=== PATIENT | female | born 1985 | race Caucasian/White ===

== ENCOUNTER 2018-08-17 12:30 | Emergency (ER) | payer OTHER ==
[2018-08-17 12:38] VITALS: BP 119/91; PULSE 59; TEMP 97.7; BMI 24.3
--- NOTE | 2018-08-17 13:22 | PDOC ---
History of Present Illness - General Chief Complaint: Urinary Problem Stated Complaint: R/O UTI Time Seen by Provider: 08/17/18 12:57 History Source: Patient Exam Limitations: Clinical Condition - History of Present Illness Initial Comments: 08/17/18 13:18 Patient with history of depression, anxiety present with complaint of three-day history of nasal congestion, runny nose and throat irritation. Patient also urinary frequency and dysuria. Patient reported vaginal delivery 2 months ago and wants letter to go back to work. Patient report uncomplicated vaginal delivery. Patient denies fever, chills, nausea or vomiting. Patient denies abdominal pain. Timing/Duration: other (3 days) Past History - Past Medical History Allergies/Adverse Reactions: Allergies Allergy/AdvReac Type Severity Reaction Status Date / Time No Known Allergies Allergy Verified 08/17/18 12:38 Home Medications: Ambulatory Orders Mirtazapine [Remeron -] 15 mg PO DAILY #30 tablet 08/18/17 Risperidone 1 mg PO HS #30 tablet 08/18/17 Zolpidem Tartrate [Ambien] 10 mg PO HS #30 tablet MDD 1 08/18/17 Albuterol Sulfate Inhaler - [Ventolin HFA Inhaler -] 1 - 2 inh PO Q4H PRN #1 inhaler MDD 8 07/25/18 Atovaquone [Mepron -] 2 tsp PO DAILY #210 ml 07/25/18 Dolutegravir Sodium [Tivicay] 1 tab PO DAILY #30 tablet 07/25/18 Emtricitabine/Tenofov Alafenam [Descovy 200-25 mg Tablet (Nf)] 1 tab PO DAILY # 30 tablet 07/25/18 Fluticasone Prop 0.05% Nasal [Flonase -] 1 - 2 spray NS DAILY #1 spray.pump Hydrocortisone 1% Cream [Hytone 1% Cream -] 1 applic TP BID #1 tube 07/25/18 Ibuprofen 400 mg PO BID #20 tablet MDD 2 07/25/18 Loratadine [Claritin -] 10 mg PO DAILY PRN #30 tablet 07/25/18 Multivitamin,Ther and Minerals [Vitamin and Minerals] 1 each PO DAILY #30 tablet 07/25/18 Nebulizer and Compressor [Comp-Air Nebulizer System] 1 each ASDIR #1 each Silver Sulfadiazine 1% Top Cr [Silvadene] 1 applic TP BID #1 jar 07/25/18 Cephalexin Monohydrate [Keflex -] 500 mg PO BID 7 Days #14 capsule 08/17/18 Ipratropium [place] 2 spray NS BID PRN #1 spray 08/17/18 Loratadine 10 mg PO DAILY #10 capsule 08/17/18 Phenazopyridine HCl [Pyridium -] 100 mg PO TID 2 Days #6 tablet 08/17/18 Anemia: Yes Asthma: Yes Cancer: No Cardiac Disorders: Yes CVA: No COPD: No CHF: No Dementia: No Diabetes: No GI Disorders: No Disorders: No HTN: No Hypercholesterolemia: No Liver Disease: No Psychiatric Problems: Yes (depression) Seizures: No Thyroid Disease: No - Reproductive History (#): 1 Para: 0 Therapeutic (s) & number: Yes Spontaneous : 4 - Suicide/Smoking/Psychosocial Hx Smoking Status: No Smoking History: Never smoked Have you smoked in the past 12 months: No Number of Cigarettes Smoked Daily: 0 Cigars Per Day: 0 Information on smoking cessation initiated: No Hx Alcohol Use: No Drug/Substance Use Hx: No Substance Use Type: None Hx Substance Use Treatment: No (Says she never used drugs / alcohol or smoked cigarretes) Review of Systems - Review of Systems Able to Perform ROS?: Yes Is the patient limited Occitan proficient: No Constitutional: No: Chills, Fever, Malaise HEENTM: Yes: Symptoms Reported, See HPI, Nose Congestion. No: Eye Pain, Blurred Vision, Tearing, Recent change in vision, Double Vision, Cataracts, Ear Pain, Ocular Prothesis, Ear Discharge, Nose Pain, Tinnitus, Nose Bleeding, Hearing Loss, Throat Pain, Throat Swelling, Mouth Pain, Dental Problems, Difficulty Swallowing, Mouth Swelling, Other Respiratory: Yes: Symptoms reported, See HPI, Cough (intermittent). No: Orthopnea, Shortness of Breath, SOB with Exertion, SOB at Rest, Stridor, Wheezing, Productive cough, Hemoptysis, Other Cardiac (ROS): No: Symptoms Reported, See HPI, Chest Pain, Edema, Irregular Heart Rate, Lightheadedness, Palpitations, Syncope, Chest Tightness, Other ABD/GI: No: Nausea, Vomiting : Yes: Symptoms Reported, See HPI, Burning, Dysuria, Frequency. No: Discharge , Flank Pain, Hematuria, Incontinence, Urgency Musculoskeletal: No: Back Pain All Other Systems: Reviewed and Negative *Physical Exam - Vital Signs Last Vital Signs Temp Pulse Resp BP Pulse Ox 97.7 F 59 L 18 119/91 97 08/17/18 12:35 08/17/18 12:35 08/17/18 12:35 08/17/18 12:35 08/17/18 12:35 - Physical Exam Comments: 08/17/18 13:22 GENERAL: Well developed, well nourished. Awake and alert. No acute distress. HEENT: Normocephalic, atraumatic. PERRLA, EOMI. No conjunctival pallor. Sclera are non-icteric. Moist mucous membranes. Oropharynx is clear. NECK: Supple. Full ROM. CARDIOVASCULAR: Regular rate and rhythm. No murmurs, rubs, or gallops. Distal pulses are 2+ and symmetric. PULMONARY: No evidence of respiratory distress. Lungs clear to auscultation bilaterally. No wheezing, rales or rhonchi. ABDOMINAL: Soft. Non-tender. Non-distended. No rebound or guarding. No organomegaly. Normoactive bowel sounds. MUSCULOSKELETAL Normal range of motion at all joints. : SKIN: Warm and dry. Normal capillary refill. No rashes. No jaundice. NEUROLOGICAL: Alert, awake, appropriate. Gait is normal without ataxia. PSYCHIATRIC: Cooperative. Good eye contact. Appropriate mood General Appearance: Yes: Nourished, Appropriately Dressed. No: Apparent Distress Moderate Sedation - Procedure Monitoring Vital Signs: Procedure Monitoring Vital Signs Temperature 97.7 F 08/17/18 12:35 Pulse Rate 59 L 08/17/18 12:35 Respiratory Rate 18 08/17/18 12:35 Blood Pressure 119/91 08/17/18 12:35 O2 Sat by Pulse Oximetry (%) 97 08/17/18 12:35 Medical Decision Making - Medical Decision Making 08/17/18 13:44 Patient with history of depression and anxiety present with complaint of three- day history of URI symptoms and 2 day history of dysuria, urinary frequency and suprapubic discomfort. Patient denies fever or chills. Exam significant for bilateral nasal congestion with lungs clear to auscultation bilateral. Normal pelvic exam with no cervical motion tenderness on pelvic exam and non- gravid abdomen or vaginal exam. UA and urine culture ordered. Urine hCG negative. Treat based on UA results. 08/17/18 14:12 UA shows moderate leukocytes with trace hematuria. Patient stable for discharge on Keflex for possible UTI and nasal spray with antihistamine for sinusitis with PCP follow-up. *DC/Admit/Observation/Transfer Diagnosis at time of Disposition: UTI (urinary tract infection) Qualifiers: Urinary tract infection type: acute cystitis Hematuria presence: without hematuria Qualified Code(s): N30.00 - Acute cystitis without hematuria Sinusitis Qualifiers: Sinusitis location: frontal Chronicity: acute Recurrence: non-recurrent Qualified Code(s): J01.10 - Acute frontal sinusitis, unspecified URI (upper respiratory infection) Qualifiers: URI type: unspecified URI Qualified Code(s): J06.9 - Acute upper respiratory infection, unspecified - Discharge Dispostion Disposition: HOME Condition at time of disposition: Stable Decision to Admit order: No - Prescriptions Prescriptions: Cephalexin Monohydrate [Keflex -] 500 mg PO BID 7 Days #14 capsule Ipratropium Courtenay 2 spray NS BID PRN #1 spray PRN Reason: nasal congestion Loratadine 10 mg PO DAILY #10 capsule Phenazopyridine HCl [Pyridium -] 100 mg PO TID 2 Days #6 tablet - Referrals Referrals: Magaly Vasquez [employer] [Primary Care Provider] - - Patient Instructions Printed Discharge Instructions: Urinary Tract Infection - Post Discharge Activity Forms/Work/School Notes: Back to Work
[2018-08-17 13:28] LABS: HCG,QUALITATIVE URINE Negative; URINE APPEARANCE SLCLOUDY; URINE BILIRUBIN NEGATIVE (<2.0 mg/dL); URINE COLOR COLORLESS; URINE GLUCOSE (UA) NEGATIVE (NEGATIVE); URINE KETONE NEGATIVE (NEGATIVE); URINE LEUK ESTERASE 1+ (NEGATIVE); URINE NITRITE NEGATIVE (NEGATIVE); URINE PROTEIN NEGATIVE (NEGATIVE); URINE UROBILINOGEN NEGATIVE mg/dL (0.2-1.0)
[2018-08-17 13:59] LABS: EPI CELLS RARE /HPF (FEW); URINE BACTERIA MODERATE /hpf (NONE SEEN)
== END 2018-08-17 14:03 | disposition home or self-care (01) ==
LOC: JERFT 12:30
DX: N30.00 Acute cystitis without hematuria (principal); J01.10 Acute frontal sinusitis, unspecified; J06.9 Acute upper respiratory infection, unspecified
CPT/HCPCS: 81003; 81015; 84703; 87086; 99281-25

== ENCOUNTER 2018-09-16 12:22 | Inpatient (IN) | payer OTHER ==
--- NOTE | 2018-09-16 12:33 | PDOC ---
History of Present Illness - General Chief Complaint: Rash Stated Complaint: RASH R ARM Time Seen by Provider: 09/16/18 12:32 History Source: Patient Exam Limitations: No Limitations - History of Present Illness Initial Comments: Patient is a 33 y/o F w/ PMHx HIV, anemia, PE, psychiatric issues, p/w 3 days burning rash covering her R arm, chest, and back. Pain is severe and unremitting. No other complaints. No recent changes in medication, no contact with unusual fabrics, no contact with unusual vegetation or animals. Does endorse recent trip to [place]. States she is compliant with HAART. Per chart review, most recent CD4 count on 08/17/18 was 368, prior to that was 187 in May. Afebrile w/ stable vitals on presentation. 09/16/18 13:15 Past History - Travel Traveled outside of the country in the last 30 days: No Close contact w/someone who was outside of country & ill: No - Past Medical History Allergies/Adverse Reactions: Allergies Allergy/AdvReac Type Severity Reaction Status Date / Time No Known Allergies Allergy Verified 09/16/18 12:30 Home Medications: Ambulatory Orders Fluticasone Prop 0.05% Nasal [Flonase -] 1 - 2 spray NS DAILY #1 spray.pump Hydrocortisone 1% Cream [Hytone 1% Cream -] 1 applic TP BID #1 tube 07/25/18 Ipratropium [place] 2 spray NS BID PRN #1 spray 08/17/18 Albuterol 0.083% Nebulizer Vale [Ventolin 0.083% Nebulizer Soln -] 1 neb NEB Q6H #1 box 09/07/18 Albuterol Sulfate Inhaler - [Ventolin HFA Inhaler -] 1 - 2 inh PO Q4H PRN #1 inhaler MDD 8 09/07/18 Atovaquone [Mepron Oral Solution -] 2 tsp PO DAILY #210 ml 09/07/18 Dolutegravir Sodium [Tivicay] 1 tab PO DAILY #30 tablet 09/07/18 Emtricitabine/Tenofov Alafenam [Descovy 200-25 mg Tablet (Nf)] 1 tab PO DAILY # 30 tablet 09/07/18 Ibuprofen 400 mg PO BID #20 tablet MDD 2 09/07/18 Loratadine [Claritin -] 10 mg PO DAILY PRN #30 tablet 09/07/18 Mirtazapine [Remeron -] 15 mg PO DAILY #30 tablet 09/07/18 Multivitamin,Ther and Minerals [Vitamin and Minerals] 1 each PO DAILY #30 tablet 09/07/18 Risperidone 2 mg PO DAILY #30 tablet 09/07/18 Zolpidem Tartrate [Ambien] 5 mg PO HS #30 tablet MDD 1 09/07/18 Anemia: Yes Asthma: Yes Cancer: No Cardiac Disorders: Yes CVA: No COPD: No CHF: No Dementia: No Diabetes: No GI Disorders: No Disorders: No HTN: No Hypercholesterolemia: No Liver Disease: No Psychiatric Problems: Yes (depression) Seizures: No Thyroid Disease: No - Reproductive History (#): 1 Para: 0 Therapeutic (s) & number: Yes Spontaneous : 4 - Suicide/Smoking/Psychosocial Hx Smoking Status: No Smoking History: Never smoked Have you smoked in the past 12 months: No Number of Cigarettes Smoked Daily: 0 Cigars Per Day: 0 Hx Alcohol Use: No Drug/Substance Use Hx: No Substance Use Type: None Hx Substance Use Treatment: No (Says she never used drugs / alcohol or smoked cigarretes) Review of Systems - Review of Systems Comments:: As per HPI 09/16/18 13:25 *Physical Exam - Vital Signs Last Vital Signs Temp Pulse Resp BP Pulse Ox 97.8 F 80 18 131/87 99 09/16/18 12:32 09/16/18 12:32 09/16/18 12:32 09/16/18 12:32 09/16/18 12:32 - Physical Exam Comments: Gen: A&Ox3, in mild distress HEENT: NC/AT, PERRLA, EOMI Neck: Supple, NT, no LAD CV: RRR no m/r/g Resp: CTA b/l Abd: +bs, soft, NT, ND Ext: 2+ pulses, wwp Neuro: hand cloth folder, motor, sensory systems w/o focal deficit Skin: vesicular lesions throughout RUE and central upper back in C6-C8 distribution, also on right/central chest in T1-T3 distribution; some vesicles appear grouped into bullae; no appearance of superinfection appreciated 09/16/18 13:27 Moderate Sedation - Procedure Monitoring Vital Signs: Procedure Monitoring Vital Signs Temperature 97.8 F 09/16/18 12:32 Pulse Rate 80 09/16/18 12:32 Respiratory Rate 18 09/16/18 12:32 Blood Pressure 131/87 09/16/18 12:32 O2 Sat by Pulse Oximetry (%) 99 09/16/18 12:32 Medical Decision Making - Medical Decision Making Presentation is highly concerning for disseminated zoster. Placed on airborne and contact precautions. CBC, CMP, UA, urine hCG ordered. Providing gabapentin and toradol for pain. Consulted, ID, d/w Dr. Cordero. Will prehydrate w/ NS boluses and then begin IV acyclovir 10mg/kg q8h. 09/16/18 13:31 CBC wnl 09/16/18 14:08 Chemistry wnl, d/w Dr. Cronin, will admit to hospitalist. 09/16/18 15:08 *DC/Admit/Observation/Transfer Diagnosis at time of Disposition: Disseminated herpes zoster - Discharge Dispostion Condition at time of disposition: Stable Decision to Admit order: Yes - Referrals - Patient Instructions - Post Discharge Activity
[2018-09-16] MEDS ORDERED: KETOROLAC TROMETHAMINE 30 MG/1 ML VIAL IVPUSH ONE (13:10)
[2018-09-16] MEDS ORDERED: GABAPENTIN 300 MG CAPSULE (FP) PO ONE (13:10)
[2018-09-16] MEDS ORDERED: SODIUM CHLORIDE 1,000 ML IV STA ×2 (13:22→14:10)
[2018-09-16 14:03] LABS: BASO % 0.6 % (0-2.0); EOS % 10.9 % (0-4.5); HEMATOCRIT 32.6 % (32.4-45.2); HEMOGLOBIN 11.1 GM/dL (10.7-15.3); LYMPH % 44.3 % (8-40); MCH 28.8 pg (25.7-33.7); MCHC 34.2 g/dl (32.0-36.0); MEAN CELL VOLUME 84.1 fl (80-96); MEAN PLT VOLUME 7.7 fl (7.5-11.1); MONO % 9.7 % (3.8-10.2); NEUT % 34.5 % (42.8-82.8); PLATELET COUNT 197 K/MM3 (134-434); RBC 3.87 M/mm3 (3.60-5.2); RDW 13.6 % (11.6-15.6); WHITE BLOOD COUNT 4.1 K/mm3 (4.0-10.0)
[2018-09-16 14:26] LABS: ALBUMIN 3.3 g/dl (3.4-5.0); ALK PHOS 66 U/L (45-117); ANION GAP 5 MMOL/L (8-16); BILIRUBIN,TOTAL 0.4 mg/dL (0.2-1); BLOOD UREA NITROGEN 8 mg/dL (7-18); CALCIUM 8.2 mg/dL (8.5-10.1); CHLORIDE 106 mmol/L (98-107); CO2 26 mmol/L (21-32); CREATININE 0.7 mg/dL (0.55-1.3); GLUCOSE,RANDOM 79 mg/dL (74-106); POTASSIUM 3.8 mmol/L (3.5-5.1); SGOT/AST 24 U/L (15-37); SGPT/ALT 21 U/L (13-61); SODIUM 136 mmol/L (136-145); TOT PROT 8.7 g/dl (6.4-8.2)
[2018-09-16] MEDS ORDERED: KETOROLAC TROMETHAMINE 30 MG/1 ML VIAL ONE (14:30)
[2018-09-16] MEDS ORDERED: WATER IVPB SCH (14:45)
[2018-09-16] MEDS ORDERED: LACTATED RINGERS SOLUTION 1,000 ML/1,000 ML INFUS.BAG IV SCH (14:45)
[2018-09-16] MEDS ORDERED: ACYCLOVIR IVPB SCH (14:45)
[2018-09-16] MEDS ORDERED: DEXTROSE 5% IVPB SCH (14:45)
--- NOTE | 2018-09-16 15:46 | PN ---
Progress Note (short form) - Note Progress Note: ID CONSULT DICTATED MULTIDERMATOMAL VZV HIV/AIDS IV ACV 10MG/KG Q8H IVF HYDRATION
[2018-09-16] MEDS: ACYCLOVIR INJECTION 600 MG in DEXTROSE 5%-WATER - 100 ML IVPB SCH (16:13)
[2018-09-16 16:18] LABS: HCG,QUALITATIVE URINE Negative
[2018-09-16 16:20] LABS: URINE APPEARANCE CLEAR; URINE BILIRUBIN NEGATIVE (<2.0 mg/dL); URINE COLOR LTYELLOW; URINE GLUCOSE (UA) NEGATIVE (NEGATIVE); URINE KETONE NEGATIVE (NEGATIVE); URINE LEUK ESTERASE TRACE (NEGATIVE); URINE NITRITE NEGATIVE (NEGATIVE); URINE PROTEIN NEGATIVE (NEGATIVE); URINE UROBILINOGEN NEGATIVE mg/dL (0.2-1.0)
--- NOTE | 2018-09-16 16:20 | HP ---
CHIEF COMPLAINT: Right upper extremity rash PCP: HISTORY OF PRESENT ILLNESS: Patient is a 33 year old female with history of HIV on HAART (last CD4 08/2108 368), anemia, depression, presents with complaint of right upper extremity rash. She admits pink colored rash began 4 days ago first noticed while she was at work at [employer] (works as a [employer]). Rash was initially itchy. She states rash spread proximally up her arm, her upper right back, and over her chest. Rash progressed to burning, panful sensation as the week progressed. She endorsed vesicles on her arm, however has not noticed any drainage or crusting of the vesicles. She attempted taking cold compresses, and Benadryl which was mildly palliative. Hydrocortisone cream made her rash worse. She denies prior episode of these symptoms, however does admit to chickenpox as a child. Patient denies recent changes in detergent, or new clothing. Patient went to [facility] yesterday, and was discharged with instruction to take over the counter Benadryl and Hydrocortisone cream. She endorses generalized malaise without subjective fevers, chills, shortness of breath, chest pain, palpitations , abdominal pain, nausea, vomiting, diarrhea, dysuria, hematuria. ER course was notable for: (1) Ketoralac 30mg IV (2) CBC, CMP, UA, negative B-HCG (3) Recent Travel: [place] PAST MEDICAL HISTORY: HIV on HAART, anemia, depression, PAST SURGICAL HISTORY: D&C x2 Social History: Smoking: denies Alcohol: denies Drugs: denies Family History: Father: at 34 years old from HIV and unknown cancer. Patient states she did not know her father. Mother: Unknown "pelvic cancer", depression Allergies Banana, Kiwi, Olives: rash HOME MEDICATIONS: Home Medications Medication Instructions Recorded Hydrocortisone 1% Cream [Hytone 1% 1 applic TP BID #1 tube 07/25/18 Cream -] Albuterol 0.083% Nebulizer Vale 1 neb NEB Q6H #1 box 09/07/18 [Ventolin 0.083% Nebulizer Soln -] Albuterol Sulfate Inhaler - 1 - 2 inh PO Q4H PRN #1 inhaler 09/07/18 [Ventolin HFA Inhaler -] MDD 8 Atovaquone [Mepron Oral Solution -] 2 tsp PO DAILY #210 ml 09/07/18 Dolutegravir Sodium [Tivicay] 1 tab PO DAILY #30 tablet 09/07/18 Emtricitabine/Tenofov Alafenam 1 tab PO DAILY #30 tablet 09/07/18 [Descovy 200-25 mg Tablet (Nf)] Ibuprofen 400 mg PO BID #20 tablet MDD 2 09/07/18 Loratadine [Claritin -] 10 mg PO DAILY PRN #30 tablet 09/07/18 Mirtazapine [Remeron -] 15 mg PO DAILY #30 tablet 09/07/18 Multivitamin,Ther and Minerals 1 each PO DAILY #30 tablet 09/07/18 [Vitamin and Minerals] Risperidone 2 mg PO DAILY #30 tablet 09/07/18 Zolpidem Tartrate [Ambien] 5 mg PO HS #30 tablet MDD 1 09/07/18 REVIEW OF SYSTEMS CONSTITUTIONAL: Admits: Generalized weakness, malaise. Absent: fever, chills, diaphoresis, HEENT: Admits: throat pain (chronic) Absent: rhinorrhea, nasal congestion, throat swelling, ear pain, eye pain, visual changes CARDIOVASCULAR: Absent: chest pain, syncope, palpitations, irregular heart rate, lightheadedness , peripheral edema RESPIRATORY: Absent: cough, shortness of breath, dyspnea with exertion, orthopnea, wheezing, stridor, hemoptysis GASTROINTESTINAL: Absent: abdominal pain, abdominal distension, nausea, vomiting, diarrhea, constipation, melena, hematochezia GENITOURINARY: Absent: dysuria, frequency, urgency, hesitancy, hematuria, flank pain, genital pain MUSCULOSKELETAL: Absent: myalgia, arthralgia, joint swelling, back pain, neck pain SKIN: Admits: rash, itching. HEMATOLOGIC/IMMUNOLOGIC: Absent: easy bleeding, easy bruising, lymphadenopathy, frequent infections ENDOCRINE: Absent: unexplained weight gain, unexplained weight loss, heat intolerance, cold intolerance NEUROLOGIC: Absent: headache, focal weakness or paresthesias, dizziness, unsteady gait, seizure, mental status changes, bladder or bowel incontinence PHYSICAL EXAMINATION Vital Signs - 24 hr 09/16/18 12:32 Temperature 97.8 F Pulse Rate 80 Respiratory 18 Rate Blood Pressure 131/87 O2 Sat by Pulse 99 Oximetry (%) GENERAL: Awake, alert, oriented, in no acute distress. HEAD: Normocephalic, atraumatic EYES: Pupils equal, round and reactive to light, extraocular movements intact, sclera anicteric, conjunctiva clear. EARS, NOSE, THROAT: Oropharynx clear without exudates. Moist mucous membranes. No oral lesions noted. NECK: Supple without lymphadenopathy. No thyromegaly appreciated. LUNGS: Breath sounds equal, clear to auscultation bilaterally. No wheezes, and no crackles. No accessory muscle use. HEART: Regular rate and rhythm, normal S1 and S2 without murmur, rub or gallop. ABDOMEN: Soft, nontender, not distended, normoactive bowel sounds, no guarding, no rebound, no masses. No hepatomegaly or splenomegaly. MUSCULOSKELETAL: Normal range of motion at all joints. No bony deformities or tenderness. No CVA tenderness. UPPER EXTREMITIES: 2+ radail pulses, warm, well-perfused. No cyanosis. No clubbing. No peripheral edema. LOWER EXTREMITIES: 2+ dorsalis pedis pulses, warm, well-perfused. No calf tenderness. No peripheral edema. NEUROLOGICAL: Cranial nerves II-XII intact. Normal speech. PSYCHIATRIC: Cooperative. Good eye contact. Appropriate mood and affect upon my encounter. SKIN: Vesicular rash noted along lateral and dorsal aspect right arm, right sided supper chest inferior to clavicle, right sided upper back. Does not cross midline. Vesicles in various stages, without appreciable discharge, or crusting. Laboratory Results - last 24 hr 09/16/18 09/16/18 09/16/18 13:52 13:52 16:00 WBC 4.1 RBC 3.87 Hgb 11.1 Hct 32.6 MCV 84.1 MCH 28.8 MCHC 34.2 RDW 13.6 Plt Count 197 MPV 7.7 D Absolute Neuts (auto) 1.4 L Neutrophils % 34.5 L Lymphocytes % 44.3 H Monocytes % 9.7 Eosinophils % 10.9 H Basophils % 0.6 Nucleated RBC % 0 Sodium 136 Potassium 3.8 Chloride 106 Carbon Dioxide 26 Anion Gap 5 L BUN 8 Creatinine 0.7 Creat Clearance w eGFR > 60 Random Glucose 79 Calcium 8.2 L Total Bilirubin 0.4 AST 24 ALT 21 Alkaline Phosphatase 66 Total Protein 8.7 H Albumin 3.3 L Beta HCG, Quant < 1.0 Urine HCG, Qual Negative ASSESSMENT/PLAN: Patient is a 33 year old female with history of HIV on HAART (last CD4 08/2108 368), anemia, depression, presents with complaint of right upper extremity rash. Disseminated Herpes Zoster -Vesicular rash right sided dermatomes C5-C8, with painful burning. Vesicles currently not ruptured, no drainage, not crusted over. -ID consult (Dr. Motley) appreciated -Acyclovir 600mg IV Q8H -IV normal saline at 75mL/ hour standing -IV normal saline bolus 250mL prior to Acyclovir administration to prevent crystallization -Pain control with Tylenol 650mg PO Q6H PRN -Airborne precautions -Contact isolation HIV on HAART -Descovy 200-25mg PO daily -Tivicay 50mg PO daily -Atovaquone 60mg PO daily Anxiety, Depression -Remeron 15mg PO HS -Risperidone 2mg PO daily Insomnia -Zolpidem 5mg PO HS FEN -IV fluids at 75mL/ hour with bolus prior to IV Acyclovir -Within normal limits, following CMP -Regular diet Prophylaxis -Lovenox 40mg subq daily Disposition -Admit to medical- surgical floor. Visit type - Emergency Visit Emergency Visit: Yes ED Registration Date: 09/16/18 Care time: The patient presented to the Emergency Department on the above date and was hospitalized for further evaluation of their emergent condition. - New Patient This patient is new to me today: Yes Date on this admission: 09/16/18 - Critical Care Critical Care patient: No
--- NOTE | 2018-09-16 16:22 | CONS ---
DATE OF CONSULTATION: DATE OF DICTATION: 09/16/2018 INFECTIOUS DISEASE CONSULTATION HISTORY OF PRESENT ILLNESS: The patient is a 33-year-old female, history of acquired immunodeficiency syndrome evaluated for multidermatomal herpes zoster. The patient developed a painful rash involving the right upper extremity. She reports it started on the right wrist and extended to the arm. She apparently had been seen as an outpatient and had been prescribed medication without significant improvement. She presented to the clinic, where she was referred to the emergency room. Upon evaluation in the emergency room, she was found to have a vesicular eruption involving the right upper extremity extending to the right scapular area and the right chest. The patient has a history of acquired immunodeficiency syndrome. She reports adherence to her antiretroviral therapy, most recent viral marker showed a viral load of 2420 and a T-cell count of 368. LABORATORY DATA: White count 4.1, hematocrit 32.6, platelet count 197, creatinine 0.7. PHYSICAL EXAMINATION: General: On exam, she is awake and alert. She is in moderate distress secondary to her acute pain of the right upper extremity rash. She is noted to have a vesicular rash involving the right upper extremity that appears to involve dermatomes C5, C6, and C7. There is also an area on the scapular area and an area on the chest which appears to correspond to dermatome T1. The lesions do not appear to be secondarily infected. HEENT: Sclerae anicteric. Oropharynx no lesions noted. Neck: Supple. No palpable nodes. Cardiovascular: Heart sounds S1, S2. Lungs: Clear. Abdomen: Soft, nontender. Extremities: Negative for edema. IMPRESSION: 1. Multidermatomal herpes zoster. 2. Acquired immunodeficiency syndrome. Advised treatment with acyclovir 10 mg/kg IV piggyback every 8 hours, IV fluid hydration, contact precautions. Will follow. Thank you for the kind referral. ERICKA PARK M.D. [id number]
[2018-09-16 16:27] LABS: EPI CELLS RARE /HPF (FEW); URINE MUCUS RARE
[2018-09-16] MEDS: ATOVAQUONE 750 MG/5 ML (UNIT-DOSE PACKAGING) PO SCH (16:39)
[2018-09-16] MEDS: PATIENT'S OWN MEDICATION (NON-FORMULARY) (Emtricitabine/Tenofov Alafenam [Descovy 200-25 M PO SCH (16:40)
[2018-09-16] MEDS: DOLUTEGRAVIR SODIUM 50 MG TABLET (NON-FORMULARY) PO SCH (16:40)
[2018-09-16 16:53] VITALS: BMI 25.7
--- NOTE | 2018-09-16 17:12 | PN ---
Teaching Attending Note Name of Resident: Orlando Sexton ATTENDING PHYSICIAN STATEMENT I saw and evaluated the patient. I reviewed the resident's note and discussed the case with the resident. I agree with the resident's findings and plan as documented. SUBJECTIVE:33yo F wtih PMH HIV on HARRT, anemia, depression, anxiety presented to the ER with progressive rash x 5 days. states it started as discoloration and then developed vessicles and was pruritic and then turned into a burning pain. is unable to state if rash started all at once or was spreading. benadryl and cold compresses initially improved it but no longer helped. hydrocortisone cream made it worse. went to [facility] on 09/14 and was told to take benadryl. denies CP, SOB, fever, chills, N/V/C/D, any new exposures (has 3 month baby at home), new detergents or soaps. did have chickenpox as a child OBJECTIVE: Last Vital Signs Temp Pulse Resp BP Pulse Ox 98.2 F 78 18 133/80 98 09/16/18 16:49 09/16/18 16:49 09/16/18 16:49 09/16/18 16:49 09/16/18 16:49 General anxious, tearful during exam CV S1 S2 + lungs CTA B/L no wheezing/rales/rhonchi skin RUE with vesicular lesions of varying size following dermatome C5-8, also appreciated in posteriorly near the scapula in dermatome c8 and on anterior chest wall medial to midline in T1, area is warm but not TTT. ASSESSMENT AND PLAN: 33yo F wtih PMH HIV on HARRT, anemia, depression, anxiety presented to the ER with progressive rash x 5 days 1. Multi-dermatome HZV. will start acyclovir IV wtih good IV hydration with bolus prior to each dose. contact and airborne isolation. ID consulted 2. anxiety- emotional support given. 3. HIV on HARRT- last Cd4 counts were done last month. cont HARRT therapy 4. anemia- no signs of bleeding no indication for transfusion 5. DVT ppx- lovenox
[2018-09-16] MEDS ORDERED: SODIUM CHLORIDE 250 ML IV STA ×2 (17:28→17:39)
[2018-09-16] MEDS: SODIUM CHLORIDE 1,000 ML IV SCH (17:34)
[2018-09-16] MEDS ORDERED: ACETAMINOPHEN 325 MG TABLET (FP) PO PRN (17:47)
[2018-09-16] MEDS ORDERED: ZOLPIDEM TARTRATE 5 MG TABLET ONE (23:14)
[2018-09-16] MEDS ORDERED: GABAPENTIN 100 MG CAPSULE (FP) ONE (23:15)
[2018-09-16] MEDS ORDERED: MIRTAZAPINE 15 MG TABLET (FP) ONE (23:15)
[2018-09-16] MEDS: MIRTAZAPINE 15 MG TABLET (FP) PO SCH (23:28)
[2018-09-16] MEDS: ZOLPIDEM TARTRATE 5 MG TABLET PO SCH (23:28)
[2018-09-16] MEDS: GABAPENTIN 100 MG CAPSULE (FP) PO SCH (23:28)
[2018-09-17] MEDS: ACYCLOVIR INJECTION 600 MG in DEXTROSE 5%-WATER - 100 ML IVPB SCH ×4 (00:43→23:16)
[2018-09-17] MEDS ORDERED: GABAPENTIN 100 MG CAPSULE (FP) ONE (07:26)
[2018-09-17] MEDS: GABAPENTIN 100 MG CAPSULE (FP) PO SCH (07:31)
[2018-09-17 08:21] LABS: BASO % 0.2 % (0-2.0); EOS % 10.2 % (0-4.5); HEMATOCRIT 31.7 % (32.4-45.2); HEMOGLOBIN 10.9 GM/dL (10.7-15.3); LYMPH % 38.5 % (8-40); MCH 29.2 pg (25.7-33.7); MCHC 34.4 g/dl (32.0-36.0); MEAN CELL VOLUME 84.8 fl (80-96); MEAN PLT VOLUME 8.3 fl (7.5-11.1); MONO % 10.3 % (3.8-10.2); NEUT % 40.8 % (42.8-82.8); PLATELET COUNT 176 K/MM3 (134-434); RBC 3.74 M/mm3 (3.60-5.2); WHITE BLOOD COUNT 4.3 K/mm3 (4.0-10.0)
[2018-09-17 08:50] LABS: ALBUMIN 2.8 g/dl (3.4-5.0); ALK PHOS 58 U/L (45-117); ANION GAP 4 MMOL/L (8-16); BILIRUBIN,TOTAL 0.4 mg/dL (0.2-1); BLOOD UREA NITROGEN 6 mg/dL (7-18); CALCIUM 7.6 mg/dL (8.5-10.1); CHLORIDE 109 mmol/L (98-107); CO2 23 mmol/L (21-32); CREATININE 0.7 mg/dL (0.55-1.3); GLUCOSE,RANDOM 81 mg/dL (74-106); POTASSIUM 3.9 mmol/L (3.5-5.1); SGOT/AST 25 U/L (15-37); SGPT/ALT 19 U/L (13-61); SODIUM 136 mmol/L (136-145); TOT PROT 7.8 g/dl (6.4-8.2)
[2018-09-17] MEDS: DOLUTEGRAVIR SODIUM 50 MG TABLET (NON-FORMULARY) PO SCH (09:14)
[2018-09-17] MEDS: risperiDONE 2 MG TABLET PO SCH ×2 (09:14→13:02)
[2018-09-17] MEDS: ENOXAPARIN NA (PORCINE) 40 MG/0.4 ML DISP.SYRIN SQ SCH (09:14)
[2018-09-17] MEDS ORDERED: GABAPENTIN 100 MG CAPSULE (FP) PO PRN (12:15)
--- NOTE | 2018-09-17 12:15 | PN ---
Progress Note (short form) - Note Progress Note: states some improvement in pain. no change in rash. denies CP, SOB, fever, chills Current Medications Generic Name Dose Route Start Last Admin Trade Name Abbe PRN Reason Stop Dose Admin Acetaminophen 650 mg 09/16/18 17:47 Tylenol - PO Q6H PRN Fever Or Pain Enoxaparin Sodium 40 mg 09/17/18 10:00 09/17/18 09:14 Lovenox - SQ Not Given DAILY ELSY Gabapentin 100 mg 09/16/18 22:00 09/17/18 07:31 Neurontin - PO 100 mg TID ELSY Administration Acyclovir 600 mg/ Dextrose 112 mls @ 100 mls/hr 09/16/18 15:18 09/17/18 00:43 IVPB 100 mls/hr Q8H ESLY Administration Sodium Chloride 1,000 mls @ 75 mls/hr 09/16/18 17:30 09/16/18 17:34 Normal Saline - IV 75 mls/hr ASDIR ELSY Administration Mirtazapine 15 mg 09/16/18 22:00 09/16/18 23:28 Remeron - PO 15 mg HS ELSY Administration Non-Formulary Medication 1 tab 09/16/18 15:45 09/16/18 16:40 Emtricitabine/Tenofov Alafenam [Descovy 200-25 Mg Tablet (Nf)] PO Not Given DAILY ELSY Risperidone 2 mg 09/17/18 10:00 09/17/18 09:14 Risperdal - PO 2 mg DAILY ELSY Administration Zolpidem Tartrate 5 mg 09/16/18 22:00 09/16/18 23:28 Ambien - PO 5 mg HS ELSY Administration Last Vital Signs Temp Pulse Resp BP Pulse Ox 98.1 F 74 17 114/72 97 09/16/18 18:12 09/17/18 09:22 09/17/18 09:22 09/17/18 09:22 09/17/18 09:22 General NAD CV S1 S2 + lungs CTA B/L no wheezing/rales/rhonchi skin RUE with vesicular lesions of varying size following dermatome C5-8, also appreciated in posteriorly near the scapula in dermatome c8 and on anterior chest wall medial to midline in T1, area is warm but not TTT. CBCD WBC 4.3 K/mm3 (4.0-10.0) 09/17/18 07:00 RBC 3.74 M/mm3 (3.60-5.2) 09/17/18 07:00 Hgb 10.9 GM/dL (10.7-15.3) 09/17/18 07:00 Hct 31.7 % (32.4-45.2) L 09/17/18 07:00 MCV 84.8 fl (80-96) 09/17/18 07:00 MCHC 34.4 g/dl (32.0-36.0) 09/17/18 07:00 RDW 14.0 % (11.6-15.6) 09/17/18 07:00 Plt Count 176 K/MM3 (134-434) 09/17/18 07:00 MPV 8.3 fl (7.5-11.1) 09/17/18 07:00 CMP Sodium 136 mmol/L (136-145) 09/17/18 07:00 Potassium 3.9 mmol/L (3.5-5.1) 09/17/18 07:00 Chloride 109 mmol/L (98-107) H 09/17/18 07:00 Carbon Dioxide 23 mmol/L (21-32) 09/17/18 07:00 Anion Gap 4 MMOL/L (8-16) L 09/17/18 07:00 BUN 6 mg/dL (7-18) L 09/17/18 07:00 Creatinine 0.7 mg/dL (0.55-1.3) 09/17/18 07:00 Creat Clearance w eGFR > 60 (>60) 09/17/18 07:00 Calcium 7.6 mg/dL (8.5-10.1) L 09/17/18 07:00 Total Bilirubin 0.4 mg/dL (0.2-1) 09/17/18 07:00 AST 25 U/L (15-37) 09/17/18 07:00 ALT 19 U/L (13-61) 09/17/18 07:00 Alkaline Phosphatase 58 U/L (45-117) 09/17/18 07:00 Total Protein 7.8 g/dl (6.4-8.2) 09/17/18 07:00 Albumin 2.8 g/dl (3.4-5.0) L 09/17/18 07:00 ASSESSMENT AND PLAN: 33yo F wtih PMH HIV on HARRT, anemia, depression, anxiety presented to the ER with progressive rash x 5 days 1. Multi-dermatome HZV- cont acylovir IV with good IV hydration. monitor renal function. monitor lesions for crusting. contact and airborne isolation. ID consulted 2. anxiety- calm today 3. HIV on HARRT- last Cd4 counts were done last month. cont HARRT therapy 4. anemia- no signs of bleeding no indication for transfusion 5. DVT ppx- lovenox Visit type - Emergency Visit Emergency Visit: Yes ED Registration Date: 09/16/18 Care time: The patient presented to the Emergency Department on the above date and was hospitalized for further evaluation of their emergent condition. - New Patient This patient is new to me today: No - Critical Care Critical Care patient: No - Discharge Referral Referred to [facility] Med P.C.: No
[2018-09-17] MEDS: SODIUM CHLORIDE 1,000 ML IV SCH ×3 (12:35→23:17)
[2018-09-17] MEDS: PATIENT'S OWN MEDICATION (NON-FORMULARY) (Emtricitabine/Tenofov Alafenam [Descovy 200-25 M PO SCH (15:03)
[2018-09-17] MEDS: MIRTAZAPINE 15 MG TABLET (FP) PO SCH (23:15)
[2018-09-17] MEDS: ZOLPIDEM TARTRATE 5 MG TABLET PO SCH (23:15)
[2018-09-17] MEDS ORDERED: PT OWN MED DRAWER 7, Y5N ONE (23:21)
[2018-09-18] MEDS ORDERED: PT OWN MED DRAWER 7, Y5N ONE ×6 (06:33→17:43)
[2018-09-18] MEDS: ACYCLOVIR INJECTION 600 MG in DEXTROSE 5%-WATER - 100 ML IVPB SCH ×3 (06:48→22:55)
[2018-09-18] MEDS ORDERED: SODIUM CHLORIDE 250 ML IV STA (07:23)
[2018-09-18 07:44] LABS: ANION GAP 6 MMOL/L (8-16); BLOOD UREA NITROGEN 5 mg/dL (7-18); CALCIUM 8.1 mg/dL (8.5-10.1); CHLORIDE 105 mmol/L (98-107); CO2 23 mmol/L (21-32); CREATININE 0.7 mg/dL (0.55-1.3); GLUCOSE,RANDOM 81 mg/dL (74-106); POTASSIUM 3.8 mmol/L (3.5-5.1); SODIUM 135 mmol/L (136-145)
--- NOTE | 2018-09-18 09:32 | PN ---
Physical Exam: SUBJECTIVE: Patient seen and examined at bedside this morning. Patient does not endorse acute new complaints. She states she did not like her breakfast, and asks when she can go home. She denies subjective fevers, chills. OBJECTIVE: Vital Signs Period Temp Pulse Resp BP Sys/Kingsley Pulse Ox Last 24 Hr 97.8 F-98.7 F 78-88 16-18 129-141/74-88 97-100 GENERAL: Awake, alert, oriented, in no acute distress. HEAD: Normocephalic, atraumatic EYES: Pupils equal, round and reactive to light, extraocular movements intact, sclera anicteric, conjunctiva clear. EARS, NOSE, THROAT: Oropharynx clear without exudates. Moist mucous membranes. No oral lesions noted. NECK: Supple without lymphadenopathy. No thyromegaly appreciated. LUNGS: Breath sounds equal, clear to auscultation bilaterally. No wheezes, and no crackles. No accessory muscle use. HEART: Regular rate and rhythm, normal S1 and S2 without murmur, rub or gallop. ABDOMEN: Soft, nontender, not distended, normoactive bowel sounds, no guarding, no rebound, no masses. No hepatomegaly or splenomegaly. MUSCULOSKELETAL: Normal range of motion at all joints. No bony deformities or tenderness. No CVA tenderness. UPPER EXTREMITIES: 2+ radial pulses, warm, well-perfused. No cyanosis. No clubbing. No peripheral edema. LOWER EXTREMITIES: 2+ dorsalis pedis pulses, warm, well-perfused. No calf tenderness. No peripheral edema. NEUROLOGICAL: Cranial nerves II-XII intact. Normal speech. PSYCHIATRIC: Cooperative. Good eye contact. Appropriate mood and affect upon my encounter. SKIN: Vesicular rash noted along lateral and dorsal aspect right arm, right sided supper chest inferior to clavicle, right sided upper back. Does not cross midline. Vesicles in various stages, without appreciable discharge, or crusting. Laboratory Results - last 24 hr 09/18/18 06:30 Sodium 135 L Potassium 3.8 Chloride 105 Carbon Dioxide 23 Anion Gap 6 L BUN 5 L Creatinine 0.7 Creat Clearance w eGFR > 60 Random Glucose 81 Calcium 8.1 L Active Medications Generic Name Dose Route Start Last Admin Trade Name Freq PRN Reason Stop Dose Admin Acetaminophen 650 mg 09/16/18 17:47 Tylenol - PO Q6H PRN Fever Or Pain Enoxaparin Sodium 40 mg 09/17/18 10:00 09/17/18 09:14 Lovenox - SQ Not Given DAILY ELSY Gabapentin 100 mg 09/17/18 12:15 Neurontin - PO TID PRN pain Acyclovir 600 mg/ Dextrose 112 mls @ 100 mls/hr 09/16/18 15:18 09/18/18 06:48 IVPB 100 mls/hr Q8H ELSY Administration Sodium Chloride 1,000 mls @ 75 mls/hr 09/16/18 17:30 09/17/18 23:17 Normal Saline - IV 75 mls/hr ASDIR ELSY Administration Mirtazapine 15 mg 09/16/18 22:00 09/17/18 23:15 Remeron - PO Not Given HS ELSY Non-Formulary Medication 1 tab 09/16/18 15:45 09/17/18 15:03 Emtricitabine/Tenofov Alafenam [Descovy 200-25 Mg Tablet (Nf)] PO Not Given DAILY ELSY Risperidone 2 mg 09/17/18 10:00 09/17/18 13:02 Risperdal - PO Not Given DAILY ELSY Zolpidem Tartrate 5 mg 09/16/18 22:00 09/17/18 23:15 Ambien - PO Not Given HS ELSY ASSESSMENT/PLAN: Patient is a 33 year old female with history of HIV on HAART (last CD4 08/2108 368), anemia, depression, presents with complaint of right upper extremity rash. Disseminated Herpes Zoster -Vesicular rash right sided dermatomes C5-C8, with painful burning. Vesicles currently not crusted over, no drainage. -ID consult (Dr. Motley) appreciated -Acyclovir 600mg IV Q8H -IV normal saline at 75mL/ hour standing -IV normal saline bolus 250mL prior to Acyclovir administration to prevent crystallization -Pain control with Tylenol 650mg PO Q6H PRN -Gabapentin 100mg PO TID -Airborne precautions -Contact isolation HIV on HAART -Descovy 200-25mg PO daily -Tivicay 50mg PO daily -Atovaquone 60mg PO daily Anxiety, Depression -Risperidone 2mg PO daily Insomnia -Zolpidem 5mg PO HS FEN -IV fluids at 75mL/ hour with 250cc bolus prior to IV Acyclovir -Within normal limits, following CMP -Regular diet Prophylaxis -Lovenox 40mg subq daily Disposition -Continue care in medical- surgical floor. Visit type - Emergency Visit Emergency Visit: Yes ED Registration Date: 09/16/18 Care time: The patient presented to the Emergency Department on the above date and was hospitalized for further evaluation of their emergent condition. - New Patient This patient is new to me today: No - Critical Care Critical Care patient: No - Discharge Referral Referred to [facility] Med P.C.: No
--- NOTE | 2018-09-18 10:27 | PN ---
Teaching Attending Note Name of Resident: Orlando Sexton ATTENDING PHYSICIAN STATEMENT I saw and evaluated the patient. I reviewed the resident's note and discussed the case with the resident. I agree with the resident's findings and plan as documented. SUBJECTIVE:pain has resolved. denies CP, SOB, fever, chills OBJECTIVE: Last Vital Signs Temp Pulse Resp BP Pulse Ox 98.1 F 79 16 141/88 100 09/18/18 06:15 09/18/18 06:15 09/18/18 06:15 09/18/18 06:15 09/17/18 22:00 General NAD skin vessicles on the arm appear to be crusting over. vessicles on the back and chest still look active ASSESSMENT AND PLAN: 33yo F wtih PMH HIV on HARRT, anemia, depression, anxiety presented to the ER with progressive rash x 5 days 1. Multi-dermatome HZV- cont acylovir IV with good IV hydration. monitor renal function. monitor lesions for crusting. contact and airborne isolation. ID consulted 2. anxiety- calm today 3. HIV on HARRT- last Cd4 counts were done last month. cont HARRT therapy. not on mepron per patient 4. anemia- no signs of bleeding no indication for transfusion 5. DVT ppx- lovenox
[2018-09-18] MEDS: risperiDONE 2 MG TABLET PO SCH (11:29)
[2018-09-18] MEDS: ENOXAPARIN NA (PORCINE) 40 MG/0.4 ML DISP.SYRIN SQ SCH (11:29)
[2018-09-18] MEDS: DOLUTEGRAVIR SODIUM 50 MG TABLET (NON-FORMULARY) PO SCH (11:30)
--- NOTE | 2018-09-18 13:02 | PN ---
Physical Exam: SUBJECTIVE: Patient seen and examined OBJECTIVE: Vital Signs Period Temp Pulse Resp BP Sys/Kingsley Pulse Ox Last 24 Hr 97.8 F-98.7 F 78-88 16-18 129-141/74-88 97-100 GENERAL: The patient is awake, alert, and fully oriented, in no acute distress. HEAD: Normal with no signs of trauma. EYES: PERRL, extraocular movements intact, sclera anicteric, conjunctiva clear. No ptosis. ENT: Ears normal, nares patent, oropharynx clear without exudates, moist mucous membranes. NECK: Trachea midline, full range of motion, supple. LUNGS: Breath sounds equal, clear to auscultation bilaterally, no wheezes, no crackles, no accessory muscle use. HEART: Regular rate and rhythm, S1, S2 without murmur, rub or gallop. ABDOMEN: Soft, nontender, nondistended, normoactive bowel sounds, no guarding, no rebound, no hepatosplenomegaly, no masses. EXTREMITIES: 2+ pulses, warm, well-perfused, no edema. NEUROLOGICAL: Cranial nerves II through XII grossly intact. Normal speech, gait not observed. PSYCH: Normal mood, normal affect. SKIN: Warm, dry, normal turgor, no rashes or lesions noted Laboratory Results - last 24 hr 09/18/18 06:30 Sodium 135 L Potassium 3.8 Chloride 105 Carbon Dioxide 23 Anion Gap 6 L BUN 5 L Creatinine 0.7 Creat Clearance w eGFR > 60 Random Glucose 81 Calcium 8.1 L Active Medications Generic Name Dose Route Start Last Admin Trade Name Freq PRN Reason Stop Dose Admin Acetaminophen 650 mg 09/16/18 17:47 Tylenol - PO Q6H PRN Fever Or Pain Enoxaparin Sodium 40 mg 09/17/18 10:00 09/18/18 11:29 Lovenox - SQ Not Given DAILY ELSY Gabapentin 100 mg 09/17/18 12:15 Neurontin - PO TID PRN pain Acyclovir 600 mg/ Dextrose 112 mls @ 100 mls/hr 09/16/18 15:18 09/18/18 06:48 IVPB 100 mls/hr Q8H ELSY Administration Sodium Chloride 1,000 mls @ 75 mls/hr 09/16/18 17:30 09/17/18 23:17 Normal Saline - IV 75 mls/hr ASDIR ELSY Administration Mirtazapine 15 mg 09/16/18 22:00 09/17/18 23:15 Remeron - PO Not Given HS ELSY Non-Formulary Medication 1 tab 09/16/18 15:45 09/17/18 15:03 Emtricitabine/Tenofov Alafenam [Descovy 200-25 Mg Tablet (Nf)] PO Not Given DAILY ELSY Risperidone 2 mg 09/17/18 10:00 09/18/18 11:29 Risperdal - PO Not Given DAILY ELSY Zolpidem Tartrate 5 mg 09/16/18 22:00 09/17/18 23:15 Ambien - PO Not Given HS ELSY ASSESSMENT/PLAN:
--- NOTE | 2018-09-18 14:02 | PN ---
Progress Note, Physician History of Present Illness: VESICULAR RASH RESOLVING NOT YET ENCRUSTED NO C/O PAIN OR PRURITIS NO FEVER/ CHILLS AFEBRILE - Current Medication List Current Medications: Active Medications Acetaminophen (Tylenol -) 650 mg PO Q6H PRN PRN Reason: Fever Or Pain Enoxaparin Sodium (Lovenox -) 40 mg SQ DAILY [facility] Last Admin: 09/18/18 11:29 Dose: Not Given Gabapentin (Neurontin -) 100 mg PO TID PRN PRN Reason: pain Acyclovir 600 mg/ Dextrose 112 mls @ 100 mls/hr IVPB Q8H [facility] Last Admin: 09/18/18 06:48 Dose: 100 mls/hr Sodium Chloride (Normal Saline -) 1,000 mls @ 75 mls/hr IV ASDIR [facility] Last Admin: 09/17/18 23:17 Dose: 75 mls/hr Mirtazapine (Remeron -) 15 mg PO [facility] Last Admin: 09/17/18 23:15 Dose: Not Given Non-Formulary Medication (Emtricitabine/Tenofov Alafenam [Descovy 200-25 Mg Tablet (Nf)]) 1 tab PO DAILY [facility] Last Admin: 09/17/18 15:03 Dose: Not Given Risperidone (Risperdal -) 2 mg PO DAILY [facility] Last Admin: 09/18/18 11:29 Dose: Not Given Zolpidem Tartrate (Ambien -) 5 mg PO HS [facility] Last Admin: 09/17/18 23:15 Dose: Not Given - Objective Vital Signs: Vital Signs Temperature 98.1 F 09/18/18 11:37 Pulse Rate 87 09/18/18 11:37 Respiratory Rate 18 09/18/18 11:37 Blood Pressure 133/79 09/18/18 11:37 O2 Sat by Pulse Oximetry (%) 98 09/18/18 09:00 Constitutional: Yes: No Distress Eyes: Yes: Conjunctiva Clear Cardiovascular: Yes: Regular Rate and Rhythm, S1, S2 Respiratory: Yes: CTA Bilaterally Gastrointestinal: Yes: Normal Bowel Sounds, Soft. No: Tenderness Integumentary: Yes: Other (DRYING VESICULAR RASH R UE, UPPER BACK, CHEST) Labs: CBC, BMP 09/17/18 07:00 09/18/18 06:30 Assessment/Plan MULTIDERMATOMAL VZV AIDS CONTINUE IV ACV
[2018-09-18] MEDS: PATIENT'S OWN MEDICATION (NON-FORMULARY) (Emtricitabine/Tenofov Alafenam [Descovy 200-25 M PO SCH ×2 (15:57→18:21)
[2018-09-18] MEDS: SODIUM CHLORIDE 250 ML IV SCH ×2 (16:34→21:59)
[2018-09-18] MEDS: SODIUM CHLORIDE 1,000 ML IV SCH (20:00)
[2018-09-18] MEDS: ZOLPIDEM TARTRATE 5 MG TABLET PO SCH (22:17)
[2018-09-19] MEDS: SODIUM CHLORIDE 250 ML IV SCH ×2 (05:44→15:28)
[2018-09-19] MEDS: ACYCLOVIR INJECTION 600 MG in DEXTROSE 5%-WATER - 100 ML IVPB SCH ×2 (06:43→15:29)
[2018-09-19] MEDS ORDERED: PT OWN MED DRAWER 7, Y5N ONE ×2 (07:02→14:50)
[2018-09-19] MEDS: ATOVAQUONE 750 MG/5 ML (UNIT-DOSE PACKAGING) PO SCH (07:33)
[2018-09-19 08:10] LABS: ANION GAP 7 MMOL/L (8-16); BLOOD UREA NITROGEN 7 mg/dL (7-18); CALCIUM 8.7 mg/dL (8.5-10.1); CHLORIDE 108 mmol/L (98-107); CO2 25 mmol/L (21-32); CREATININE 0.7 mg/dL (0.55-1.3); GLUCOSE,RANDOM 88 mg/dL (74-106); SODIUM 139 mmol/L (136-145)
[2018-09-19] MEDS: DOLUTEGRAVIR SODIUM 50 MG TABLET (NON-FORMULARY) PO SCH (10:02)
[2018-09-19] MEDS: ENOXAPARIN NA (PORCINE) 40 MG/0.4 ML DISP.SYRIN SQ SCH (10:02)
[2018-09-19] MEDS: risperiDONE 2 MG TABLET PO SCH (10:03)
[2018-09-19] MEDS: PATIENT'S OWN MEDICATION (NON-FORMULARY) (Emtricitabine/Tenofov Alafenam [Descovy 200-25 M PO SCH (10:06)
--- NOTE | 2018-09-19 10:59 | PN ---
Physical Exam: SUBJECTIVE: Patient seen and examined at bedside. no acute events overnight. denies fever, chills, cp, sb, n/v/d, urinary sxs OBJECTIVE: Vital Signs Period Temp Pulse Resp BP Sys/Kingsley Pulse Ox Last 24 Hr 97.6 F-98.2 F 74-93 16-18 132-140/67-93 98 GENERAL: AOX3 NAD HEAD: NCAT EYES: sclera anicteric, conjunctiva clear. EARS, NOSE, THROAT: Oropharynx clear without exudates. MMM. No oral lesions noted. NECK: Supple without lymphadenopathy. No thyromegaly appreciated. LUNGS: CTAB HEART: RRR, normal S1 and S2 without murmur, rub or gallop. ABDOMEN: Soft, NTND normoactive bowel sounds, no guarding, no rebound, no masses. MUSCULOSKELETAL: Normal range of motion at all joints. No bony deformities or tenderness. UPPER EXTREMITIES: 2+ radial pulses, warm, well-perfused. No cyanosis. No clubbing. No peripheral edema. LOWER EXTREMITIES: 2+ dorsalis pedis pulses, warm, well-perfused. No calf tenderness. No peripheral edema. NEUROLOGICAL: Cranial nerves II-XII intact. Normal speech. PSYCHIATRIC: Cooperative. Good eye contact. Appropriate mood and affect upon my encounter. SKIN: Vesicular rash noted along lateral and dorsal aspect right arm, right sided upper chest inferior to clavicle, right sided upper back. Does not cross midline. Vesicles in various stages, without appreciable discharge. crusting present in R arm and back region. No crusting on chest Laboratory Results - last 24 hr 09/19/18 06:30 Sodium 139 Potassium 4.0 Chloride 108 H Carbon Dioxide 25 Anion Gap 7 L BUN 7 Creatinine 0.7 Creat Clearance w eGFR > 60 Random Glucose 88 Calcium 8.7 Active Medications Generic Name Dose Route Start Last Admin Trade Name Freq PRN Reason Stop Dose Admin Acetaminophen 650 mg 09/16/18 17:47 Tylenol - PO Q6H PRN Fever Or Pain Enoxaparin Sodium 40 mg 09/17/18 10:00 09/19/18 10:02 Lovenox - SQ Not Given DAILY ELSY Gabapentin 100 mg 09/17/18 12:15 Neurontin - PO TID PRN pain Acyclovir 600 mg/ Dextrose 112 mls @ 100 mls/hr 09/16/18 15:18 09/19/18 06:43 IVPB 100 mls/hr Q8H ELSY Administration Sodium Chloride 1,000 mls @ 75 mls/hr 09/16/18 17:30 09/18/18 20:00 Normal Saline - IV Not Given ASDIR ELSY Sodium Chloride 250 mls @ 250 mls/hr 09/18/18 14:30 09/19/18 05:44 Normal Saline - IV 250 mls/hr Q8H ELSY Administration Non-Formulary Medication 1 tab 09/18/18 15:45 09/19/18 10:06 Emtricitabine/Tenofov Alafenam [Descovy 200-25 Mg Tablet (Nf)] PO 1 tab DAILY ELSY Administration Risperidone 2 mg 09/17/18 10:00 09/19/18 10:03 Risperdal - PO Not Given DAILY ELSY Zolpidem Tartrate 5 mg 09/16/18 22:00 09/18/18 22:17 Ambien - PO Not Given HS ELSY ASSESSMENT/PLAN: 33 yo F PMH HIV on HAART (last CD4 08/2018 368), anemia, depression, p/w right upper extremity rash x 5 days. Disseminated Herpes Zoster -Vesicular rash right sided dermatomes C5-C8, with painful burning. Vesicles crusting on arm and back. not on chest. no drainage. -ID consult (Dr. Motley) appreciated -Acyclovir 600mg IV Q8H (day 4) -IV normal saline at 75mL/ hour standing -IV normal saline bolus 250mL prior to Acyclovir administration to prevent crystallization -Pain control with Tylenol 650mg PO Q6H PRN -Gabapentin 100mg PO TID -Airborne precautions -Contact isolation HIV on HAART -Descovy 200-25mg PO daily -Tivicay 50mg PO daily -not on mepron per patient Anxiety, Depression -Risperidone 2mg PO daily Insomnia -Zolpidem 5mg PO HS FEN -IV fluids at 75mL/ hour with 250cc bolus prior to IV Acyclovir -Within normal limits, following CMP -Regular diet Prophylaxis -Lovenox 40mg subq daily Disposition -Continue care in medical- surgical floor. Visit type - Emergency Visit Emergency Visit: Yes ED Registration Date: 09/16/18 Care time: The patient presented to the Emergency Department on the above date and was hospitalized for further evaluation of their emergent condition. - New Patient This patient is new to me today: Yes Date on this admission: 09/19/18 - Critical Care Critical Care patient: No
--- NOTE | 2018-09-19 13:11 | PN ---
Teaching Attending Note Name of Resident: Orlin Quach ATTENDING PHYSICIAN STATEMENT I saw and evaluated the patient. I reviewed the resident's note and discussed the case with the resident. I agree with the resident's findings and plan as documented. SUBJECTIVE:pain has resolved. denies CP, SOB, fever, chills, N/V/C/D OBJECTIVE: Last Vital Signs Temp Pulse Resp BP Pulse Ox 98.1 F 93 H 18 140/93 98 09/19/18 08:28 09/19/18 08:28 09/19/18 09:00 09/19/18 08:28 09/19/18 09:00 General NAD skin vessicles on the arm appear to be crusting over. vessicles on the back and chest with active white drainage ASSESSMENT AND PLAN: 33yo F wtih PMH HIV on HARRT, anemia, depression, anxiety presented to the ER with progressive rash x 5 days 1. Multi-dermatome HZV- cont acylovir IV with good IV hydration. monitor renal function. monitor lesions for crusting. contact and airborne isolation. ID on board 2. anxiety- calm today 3. HIV on HARRT- last Cd4 counts were done last month. cont HARRT therapy. not on mepron per patient 4. anemia- no signs of bleeding no indication for transfusion 5. DVT ppx- lovenox
--- NOTE | 2018-09-19 15:20 | PN ---
Progress Note, Physician History of Present Illness: VESICULAR RASH RESOLVING NOT YET ALL ENCRUSTED NO C/O PAIN OR PRURITIS NO FEVER/ CHILLS AFEBRILE - Current Medication List Current Medications: Active Medications Acetaminophen (Tylenol -) 650 mg PO Q6H PRN PRN Reason: Fever Or Pain Enoxaparin Sodium (Lovenox -) 40 mg SQ DAILY [facility] Last Admin: 09/19/18 10:02 Dose: Not Given Gabapentin (Neurontin -) 100 mg PO TID PRN PRN Reason: pain Acyclovir 600 mg/ Dextrose 112 mls @ 100 mls/hr IVPB Q8H [facility] Last Admin: 09/19/18 06:43 Dose: 100 mls/hr Sodium Chloride (Normal Saline -) 1,000 mls @ 75 mls/hr IV ASDIR [facility] Last Admin: 09/18/18 20:00 Dose: Not Given Sodium Chloride (Normal Saline -) 250 mls @ 250 mls/hr IV Q8H [facility] Last Admin: 09/19/18 05:44 Dose: 250 mls/hr Non-Formulary Medication (Emtricitabine/Tenofov Alafenam [Descovy 200-25 Mg Tablet (Nf)]) 1 tab PO DAILY [facility] Last Admin: 09/19/18 10:06 Dose: 1 tab Risperidone (Risperdal -) 2 mg PO DAILY [facility] Last Admin: 09/19/18 10:03 Dose: Not Given Zolpidem Tartrate (Ambien -) 5 mg PO HS [facility] Last Admin: 09/18/18 22:17 Dose: Not Given - Objective Vital Signs: Vital Signs Temperature 98.1 F 09/19/18 08:28 Pulse Rate 93 H 09/19/18 08:28 Respiratory Rate 18 09/19/18 09:00 Blood Pressure 140/93 09/19/18 08:28 O2 Sat by Pulse Oximetry (%) 98 09/19/18 09:00 Constitutional: Yes: No Distress Eyes: Yes: Conjunctiva Clear Cardiovascular: Yes: Regular Rate and Rhythm, S1, S2 Respiratory: Yes: CTA Bilaterally Gastrointestinal: Yes: Normal Bowel Sounds, Soft. No: Tenderness Integumentary: Yes: Other (ENCRUSTED LESIONS R UE, BACK/CHEST FEW VESICULAR LESIONS R PALM) Labs: CBC, BMP 09/17/18 07:00 09/19/18 06:30 Assessment/Plan MULTIDERMATOMAL VZV AIDS CONTINUE IV ACV CAN SUBSTITUTE VALTREX PO IF IT CAN BE CRUSHED AND PLACED IN APPLE SAUCE ? ACYCLOVIR SUSPENSION ( PT CANNOT SWALLOW PILLS)
--- NOTE | 2018-09-19 16:57 | DS ---
Physical Exam: SUBJECTIVE: Patient seen and examined at bedside. no acute events overnight. denies fever, chills, cp, sb, n/v/d, urinary sxs OBJECTIVE: Vital Signs Period Temp Pulse Resp BP Sys/Kingsley Pulse Ox Last 24 Hr 97.6 F-98.1 F 73-93 16-18 121-140/67-93 98-98 PHYSICAL EXAM GENERAL: AOX3 NAD HEAD: NCAT EYES: sclera anicteric, conjunctiva clear. EARS, NOSE, THROAT: Oropharynx clear without exudates. MMM. No oral lesions noted. NECK: Supple without lymphadenopathy. No thyromegaly appreciated. LUNGS: CTAB HEART: RRR, normal S1 and S2 without murmur, rub or gallop. ABDOMEN: Soft, NTND normoactive bowel sounds, no guarding, no rebound, no masses. MUSCULOSKELETAL: Normal range of motion at all joints. No bony deformities or tenderness. UPPER EXTREMITIES: 2+ radial pulses, warm, well-perfused. No cyanosis. No clubbing. No peripheral edema. LOWER EXTREMITIES: 2+ dorsalis pedis pulses, warm, well-perfused. No calf tenderness. No peripheral edema. NEUROLOGICAL: Cranial nerves II-XII intact. Normal speech. PSYCHIATRIC: Cooperative. Good eye contact. Appropriate mood and affect upon my encounter. SKIN: Vesicular rash noted along lateral and dorsal aspect right arm, right sided upper chest inferior to clavicle, right sided upper back. Does not cross midline. Vesicles in various stages, without appreciable discharge. crusting present in R arm and back region. No crusting on chest LABS Laboratory Results - last 24 hr 09/19/18 06:30 Sodium 139 Potassium 4.0 Chloride 108 H Carbon Dioxide 25 Anion Gap 7 L BUN 7 Creatinine 0.7 Creat Clearance w eGFR > 60 Random Glucose 88 Calcium 8.7 HOSPITAL COURSE: Date of Admission:09/16/18 Date of Discharge: 09/19/18 33 yo F PMH HIV on HAART (last CD4 08/2018 368), anemia, depression, p/w right upper extremity rash x 5 days. Pt admitted for Disseminated Herpes Zoster Vesicular rash right sided dermatomes C5-C8, with painful burning. Vesicles crusting on arm and back. not on chest. no drainage. ID consulted (Dr. Motley). pt received Acyclovir 600mg IV Q8H (4 days) and will be discharged acyclovir suspension 8000mg 5xd for 3d. Pain control with Tylenol and Gabapentin 100mg PO TID was added. pt discharged w / gabapentin. HAART therapy continued. pt not on mepron per patient. Pt is stable and ready for dc and can return back to work tomorrow on 09/20/18. Minutes to complete discharge: 38 Discharge Summary Reason For Visit: DISSEMINATED HERPES ZOSTER Condition: Improved - Instructions Diet, Activity, Other Instructions: You came in for a rash on your arm and back and was found to have herpes. You were seen by infectious disease doctor and we gave you acyclovir to treat herpes rash and pain meds which improved your symptoms. You can return back to work tomorrow on 09/20/18. Please wear long sleeves and avoid open contact of affected skin areas with other people until all of the rash has crusted over. Please continue your home meds New medications started in hospital and to be continued: Please continue taking gabapentin 100mg 3 times a day for 15 days or until pain and rash improve Please start acyclovir 800mg for 5 times a day for 3 days in liquid/suspension form. Please follow up with your PCP in 1 week Please follow up with Dr. Motley (infectious disease doctor) in 1 week If you experience any worsening of rash, fevers, chills, chest pain, shortness of breath, nausea, vomit, diarrhea, please call 911 or come back to the ER. Referrals: Jesus Motley MD [Staff Physician] - 1 Week Disposition: HOME - Home Medications Comprehensive Discharge Medication List: Ambulatory Orders Hydrocortisone 1% Cream [Hytone 1% Cream -] 1 applic TP BID #1 tube 07/25/18 Albuterol 0.083% Nebulizer Vale [Ventolin 0.083% Nebulizer Soln -] 1 neb NEB Q6H #1 box 09/07/18 Albuterol Sulfate Inhaler - [Ventolin HFA Inhaler -] 1 - 2 inh PO Q4H PRN #1 inhaler MDD 8 09/07/18 Dolutegravir Sodium [Tivicay] 1 tab PO DAILY #30 tablet 09/07/18 Emtricitabine/Tenofov Alafenam [Descovy 200-25 mg Tablet (Nf)] 1 tab PO DAILY # 30 tablet 09/07/18 Ibuprofen 400 mg PO BID #20 tablet MDD 2 09/07/18 Loratadine [Claritin -] 10 mg PO DAILY PRN #30 tablet 09/07/18 Mirtazapine [Remeron -] 15 mg PO DAILY #30 tablet 09/07/18 Multivitamin,Ther and Minerals [Vitamin and Minerals] 1 each PO DAILY #30 tablet 09/07/18 Risperidone 2 mg PO DAILY #30 tablet 09/07/18 Zolpidem Tartrate [Ambien] 5 mg PO HS #30 tablet MDD 1 09/07/18 Acyclovir 800 mg PO 5XD 3 Days #300 ml 09/19/18 Gabapentin [Neurontin -] 100 mg PO TID PRN 15 Days #45 capsule 09/19/18 This patient is new to me today: Yes Date on this admission: 09/19/18 Emergency Visit: Yes ED Registration Date: 09/16/18 Care time: The patient presented to the Emergency Department on the above date and was hospitalized for further evaluation of their emergent condition. Critical Care patient: No - Discharge Referral Referred to [facility] Med P.C.: No
[2018-09-19 17:40] VITALS: BP 132/80; PULSE 83; TEMP 98.4
== END 2018-09-19 18:44 | disposition home or self-care (01) | DRG 894 ==
LOC: JER 12:22 → JERBED 15:10 → J4S 09-17 22:09
PROVIDERS: ADMIT Internal Medicine; ATTEND Internal Medicine
DX: B02.7 Disseminated zoster (principal); B20 Human immunodeficiency virus [HIV] disease; F41.8 Other specified anxiety disorders; D64.9 Anemia, unspecified; G47.00 Insomnia, unspecified
CPT/HCPCS: 36415; 80048; 80053; 81003; 81015; 84702; 84703; 85025; 99284-25; G0463-25; J7030

== ENCOUNTER → 2019-04-04 | Outpatient (CLI) | payer OTHER | LOC: YHH 10:48 ==

== ENCOUNTER 2020-10-17 08:58 | Inpatient (IN) | payer OTHER ==
[2020-10-17] MEDS ORDERED: IBUPROFEN 100 MG/5 ML UNIT DOSE CUPS PO ONE (09:48)
[2020-10-17] MEDS ORDERED: IBUPROFEN 100 MG/5 ML UNIT DOSE CUPS ONE (10:18)
[2020-10-17] MEDS ORDERED: morphine CARPU-JECT 4 MG/1 ML DISP.SYRIN IVPUSH ONE (10:41)
[2020-10-17] MEDS ORDERED: KETOROLAC TROMETHAMINE 30 MG/1 ML VIAL IVPUSH ONE (10:48)
[2020-10-17] MEDS ORDERED: morphine SULFATE 4 MG/ML VIAL ONE (10:55)
[2020-10-17 11:04] LABS: BASO % 0.7 % (0-2.0); EOS % 11.2 % (0-4.5); HEMATOCRIT 32.4 % (32.4-45.2); HEMOGLOBIN 10.9 GM/dL (10.7-15.3); LYMPH % 30.2 % (8-40); MCH 28.8 pg (25.7-33.7); MCHC 33.8 g/dl (32.0-36.0); MEAN CELL VOLUME 85.1 fl (80-96); MEAN PLT VOLUME 8.6 fl (7.5-11.1); MONO % 10.7 % (3.8-10.2); NEUT % 47.2 % (42.8-82.8); PLATELET COUNT 195 K/MM3 (134-434); RDW 13.7 % (11.6-15.6); WHITE BLOOD COUNT 6.8 K/mm3 (4.0-10.0)
[2020-10-17 12:39] LABS: ALBUMIN 3.4 g/dl (3.4-5.0); BILIRUBIN,TOTAL 0.5 mg/dL (0.2-1); BLOOD UREA NITROGEN 17.5 mg/dL (7-18); CALCIUM 8.6 mg/dL (8.5-10.1); CREATININE 0.9 mg/dL (0.55-1.3); TOT PROT 10.3 g/dl (6.4-8.2)
[2020-10-17] MEDS ORDERED: ALBUTEROL SO4 HFA INHALER IH PRN (17:59)
[2020-10-17] MEDS ORDERED: HEPARIN NA (PORCINE) 5,000 UNITS/ML 1ML VIAL ONE ×2 (18:13→22:14)
[2020-10-17] MEDS: HEPARIN NA (PORCINE) 5,000 UNITS/ML 1ML VIAL SQ SCH ×2 (18:19→22:20)
[2020-10-17 21:00] LABS: EPI CELLS >36 /uL (0-25.1); HYALINE CASTS 5 /uL (0-3.1); URINE APPEARANCE CLOUDY; URINE BACTERIA 333 /uL (0-1359); URINE BILIRUBIN NEGATIVE (NEGATIVE); URINE COLOR YELLOW; URINE GLUCOSE (UA) NEGATIVE (NEGATIVE); URINE KETONE TRACE (NEGATIVE); URINE LEUK ESTERASE 2+ (NEGATIVE); URINE NITRITE NEGATIVE (NEGATIVE); URINE PROTEIN TRACE (NEGATIVE); URINE UROBILINOGEN 0.2 mg/dL (0.2-1.0); URINE WBC 80 /uL (0-25.8)
[2020-10-17 21:28] LABS: URINE RBC 30.1 /uL (0-23.9)
[2020-10-18] MEDS: HEPARIN NA (PORCINE) 5,000 UNITS/ML 1ML VIAL SQ SCH ×3 (06:11→21:08)
[2020-10-18 06:33] LABS: BASO % 0.3 % (0-2.0); EOS % 13.5 % (0-4.5); HEMATOCRIT 32.7 % (32.4-45.2); HEMOGLOBIN 11.1 GM/dL (10.7-15.3); LYMPH % 31.5 % (8-40); MCH 28.9 pg (25.7-33.7); MCHC 33.8 g/dl (32.0-36.0); MEAN CELL VOLUME 85.5 fl (80-96); MEAN PLT VOLUME 8.6 fl (7.5-11.1); MONO % 9.8 % (3.8-10.2); NEUT % 44.9 % (42.8-82.8); PLATELET COUNT 190 K/MM3 (134-434); RBC 3.82 M/mm3 (3.60-5.2); RDW 13.6 % (11.6-15.6)
[2020-10-18 07:00] LABS: ALBUMIN 3.1 g/dl (3.4-5.0); CALCIUM 8.7 mg/dL (8.5-10.1)
[2020-10-18 07:01] LABS: BLOOD UREA NITROGEN 16.6 mg/dL (7-18); MAGNESIUM 1.9 mg/dL (1.8-2.4)
[2020-10-18 07:03] LABS: PHOSPHOROUS 3.2 mg/dL (2.5-4.9)
[2020-10-18 07:04] LABS: CREATININE 0.7 mg/dL (0.55-1.3)
[2020-10-18 07:05] LABS: BILIRUBIN,TOTAL 0.5 mg/dL (0.2-1); TOT PROT 9.3 g/dl (6.4-8.2)
[2020-10-18] MEDS ORDERED: LIDO 2%/EPI 1:200000 PRESRVFRE (20 ML SDVIAL) INF ONE (11:16)
[2020-10-18] MEDS ORDERED: LORazepam 2 MG/ML SDV VIAL IVPUSH ONE (12:25)
[2020-10-18] MEDS ORDERED: LORazepam 2 MG/ML SDV VIAL ONE (12:29)
[2020-10-18] MEDS ORDERED: MAGNESIUM SULFATE 16 OZ CRYSTALS TP ONE (12:50)
[2020-10-18] MEDS ORDERED: HEPARIN NA (PORCINE) 5,000 UNITS/ML 1ML VIAL ONE (14:24)
[2020-10-18] MEDS: ACETAMINOPHEN 325 MG TABLET (FP) PO PRN ×2 (16:59→21:08)
[2020-10-18] MEDS ORDERED: ACETAMINOPHEN 325 MG TABLET (FP) ONE (17:02)
[2020-10-18] MEDS: EMTRICITABINE/TENOFOV ALAFENAM (DESCOVY) TABLET PO SCH (17:05)
[2020-10-18] MEDS: DOLUTEGRAVIR SODIUM 50 MG TABLET (NON-FORMULARY) PO SCH (17:05)
[2020-10-18] MEDS: DOCUSATE SODIUM 100 MG CAPSULE (FP) PO PRN (21:08)
[2020-10-19 04:28] VITALS: BMI 22.7
[2020-10-19] MEDS: HEPARIN NA (PORCINE) 5,000 UNITS/ML 1ML VIAL SQ SCH ×4 (06:18→21:31)
[2020-10-19 11:22] LABS: HEMATOCRIT 33.6 % (32.4-45.2); HEMOGLOBIN 11.6 GM/dL (10.7-15.3); MCH 29.2 pg (25.7-33.7); MCHC 34.5 g/dl (32.0-36.0); MEAN CELL VOLUME 84.7 fl (80-96); MEAN PLT VOLUME 8.6 fl (7.5-11.1); PLATELET COUNT 197 K/MM3 (134-434); RBC 3.97 M/mm3 (3.60-5.2); RDW 13.4 % (11.6-15.6); WHITE BLOOD COUNT 4.7 K/mm3 (4.0-10.0)
[2020-10-19 11:43] LABS: CALCIUM 8.9 mg/dL (8.5-10.1)
[2020-10-19 11:44] LABS: ALBUMIN 3.2 g/dl (3.4-5.0)
[2020-10-19 11:47] LABS: CREATININE 0.8 mg/dL (0.55-1.3)
[2020-10-19] MEDS: EMTRICITABINE/TENOFOV ALAFENAM (DESCOVY) TABLET PO SCH (11:47)
[2020-10-19] MEDS: ATOVAQUONE 750 MG/5 ML (UNIT-DOSE PACKAGING) PO SCH (11:48)
[2020-10-19] MEDS: DOLUTEGRAVIR SODIUM 50 MG TABLET (NON-FORMULARY) PO SCH (11:48)
[2020-10-19 11:49] LABS: BILIRUBIN,TOTAL 0.5 mg/dL (0.2-1); TOT PROT 9.8 g/dl (6.4-8.2)
[2020-10-19] MEDS ORDERED: ACETAMINOPHEN 650 MG/20.3 ML ORAL SOLUTION (CUPS) PO PRN (12:44)
[2020-10-20] MEDS: HEPARIN NA (PORCINE) 5,000 UNITS/ML 1ML VIAL SQ SCH ×3 (05:29→14:47)
[2020-10-20] MEDS: DOCUSATE SODIUM 100 MG CAPSULE (FP) PO PRN ×2 (05:29→10:01)
[2020-10-20 08:20] LABS: BASO % 0.4 % (0-2.0); EOS % 8.4 % (0-4.5); HEMATOCRIT 30.4 % (32.4-45.2); HEMOGLOBIN 10.5 GM/dL (10.7-15.3); LYMPH % 44.2 % (8-40); MCH 29.3 pg (25.7-33.7); MCHC 34.5 g/dl (32.0-36.0); MEAN CELL VOLUME 84.9 fl (80-96); MONO % 9.8 % (3.8-10.2); NEUT % 37.2 % (42.8-82.8); PLATELET COUNT 184 K/MM3 (134-434); RBC 3.58 M/mm3 (3.60-5.2); RDW 13.7 % (11.6-15.6)
[2020-10-20 08:55] LABS: CREATININE 0.9 mg/dL (0.55-1.3)
[2020-10-20 08:56] LABS: BILIRUBIN,TOTAL 0.3 mg/dL (0.2-1); TOT PROT 8.9 g/dl (6.4-8.2)
[2020-10-20 09:16] LABS: ALBUMIN 2.8 g/dl (3.4-5.0); BLOOD UREA NITROGEN 17.7 mg/dL (7-18)
[2020-10-20 09:18] LABS: CALCIUM 8.3 mg/dL (8.5-10.1)
[2020-10-20] MEDS ORDERED: PT OWN MED DRAWER 7, Y5N ONE (09:36)
[2020-10-20] MEDS: DOLUTEGRAVIR SODIUM 50 MG TABLET (NON-FORMULARY) PO SCH (10:00)
[2020-10-20] MEDS: EMTRICITABINE/TENOFOV ALAFENAM (DESCOVY) TABLET PO SCH (10:01)
[2020-10-20] MEDS: ATOVAQUONE 750 MG/5 ML (UNIT-DOSE PACKAGING) PO SCH (10:01)
[2020-10-20 15:22] VITALS: TEMP 97.5
[2020-10-20 17:50] VITALS: BP 124/77; PULSE 70
== END 2020-10-20 19:05 | disposition home or self-care (01) | DRG 226 ==
LOC: JER 08:58 → JERBED 16:37 → J5S 10-18 18:51
PROVIDERS: ADMIT Student in an Organized Health Care Education/Training Program
PROC: 0D9QXZZ Drainage of Anus, External Approach (ICD-10-PCS; principal; 2020-10-18)
PROC: 0D7Q7ZZ Dilation of Anus, Via Natural or Artificial Opening (ICD-10-PCS; 2020-10-18)
DX: K64.5 Perianal venous thrombosis (principal); B20 Human immunodeficiency virus [HIV] disease; E87.1 Hypo-osmolality and hyponatremia; J45.30 Mild persistent asthma, uncomplicated; F32.9 Major depressive disorder, single episode, unspecified; J45.909 Unspecified asthma, uncomplicated; R74.01 Elevation of levels of liver transaminase levels; K62.3 Rectal prolapse; K59.00 Constipation, unspecified; F39 Unspecified mood [affective] disorder; K60.2 Anal fissure, unspecified; D50.9 Iron deficiency anemia, unspecified
CPT/HCPCS: 36415; 71046-TC-FY; 80053; 81003; 83735; 84100; 84132; 85025; 85027; 86359; 86360; 86850; 86900; 86901; 93005; 93010; 99285-25; C9803; J1644; U0003